=== PATIENT | male | born 1970 | race Caucasian/White ===

== ENCOUNTER 2017-01-07 00:59 | Emergency (ER) | payer OTHER ==
[~2017-01-07] VITALS: Ht 180.3 cm; Wt 86.4 kg
[~2017-01-07 00:59] MED LIST: HYDR25TA4 PO; OMEP20CA11 PO; POTASSIUM
[2017-01-07 01:01] VITALS: BP 155/104; PULSE 102; RESP 18; O2SAT 98
--- NOTE | 2017-01-07 01:25 | ED.REPORT ---
HPI-Dental/Mouth Prob Date of Service Jan 07, 2017 ED Provider: Jesus Vinson DO Pt is a 46 y.o. male with a hx of HTN who presents to the ED c/o right sided mouth and tooth pain onset 2 weeks ago and gradually worsening. Pt states that he was seen by a dentist last week and was told that his mouth x-ray did not show any cavities. He was prescribed a muscle relaxer by the dentist. He reports increased pain with cold fluids. Pt denies fever, chills, nausea, vomiting, and diarrhea. Nursing Notes Stated Complaint: TOOTH PAIN Chief Complaint: Dental Nursing Notes Reviewed: Yes Allergies: Coded Allergies: Penicillins (Verified Allergy, Intermediate, Rash, 01/07/17) carbamazepine (Verified Allergy, Unknown, rash, 01/07/17) Scheduled Hydrochlorothiazide (Hydrochlorothiazide) 25 Mg Tablet 25 MG PO DAILY Scheduled PRN Omeprazole (Omeprazole) 20 Mg Capsule.dr 20 MG PO BID PRN PRN For Epigastric Distress Miscellaneous Medications ([Potassium]) General Time Seen by MD: 01:24 Chief Complaint Mouth pain, Tooth pain Hx Obtained From: Patient Arrived By: Walk-in Onset Occurred: More than a week ago... (2 weeks) Symptom Duration: Since onset Location: : Gum mandible right: Gum maxillary right: Tooth lower R molar: Tooth upper R molar Quality: Painful Severity: Current: Severe Past Medical History Past Medical History Epididymitis Reports: Hypertension Past Surgical History C6-7 spinal surgry Right ACL repair R ear surgery/some type of skin flap anomaly Smoking History Never Smoker Social History Alcohol Use: Denies alcohol use Drug Use: Denies drug use Other Social History: Good social support, , Local resident Ambulatory Status Independent Review of Systems Constitutional: Denies: Chills, Fever Ears / Nose / Throat: Reports: Mouth pain, Toothache GI: Denies: Diarrhea, Nausea, Vomiting Complete sys rev & neg: except as marked. Physical Exam Initial Vital Signs Vital Signs (First) Date Time Temp Pulse Resp B/P Pulse Ox O2 Delivery O2 Flow Rate FiO2 01/07/17 01:01 36.8 102 18 155/104 98 01/07/17 02:29 Room Air Initial VS: Reviewed Head / Eyes: Atraumatic, Normocephalic Abdomen / GI: No distention Extremities: Vascular intact, Neuro intact Skin: Warm, Dry, No cyanosis Psychiatric: Mood/affect normal, Behavior normal, Normal thought content ENT: Atraumatic, Airway patent Dental / Gums: Positive: Dental caries present, Tender to percussion, Tooth fracture (possible), Negative: Dental abscess Neck: Atraumatic, Supple, No adenopathy General/Constitutional: Awake, Alert, Well appearing, Well developed, Well hydrated, Well nourished, Not toxic appearing Respiratory / Chest: Atraumatic, Breath sounds NL, Breath sounds = bilat, No respiratory distress Cardiovascular: Heart rate NL, Regular rhythm, Heart sounds NL, Peripheral circulation NL Neurologic: Oriented X3, Speech NL, CN II - XII intact Re-Eval/Medical Decision Med Decision/Clinical Course No signs of a periapical abscess. No stridor trismus or drooling. I will place him on a short course of antibiotics. He has a prescription of opiates waiting. He will be sent home with 10 [place] for tonight. I did recommend close outpatient dental follow-up Re-Evaluation/Progress : Time of Eval: 01:38 Re-Evaluation/Progress Note: Physical exam performed. Discussed plan for discharge, pt understands and agrees with plan. Discharge & Departure Primary Impression: Pain, dental Additional Impression: Dental caries Disposition: Home Discharge Condition All VS Reviewed: Yes Condition: Improved Patient Instructions: Dental Abscess (ED) Additional Instructions: You were seen here today for dental pain. Take Clindamycin 3 times daily for the next 5 days. Take 1-2 [place] every 6 hours as needed for pain. Do not drink, drive, or consume acetaminophen while taking [place]. Set up a follow-up appointment with your dentist. Return if you experience signs of infection: fever, redness, or drainage, or have any new or worsening symptoms. Referrals: NOPCP (PCP) [facility] [place] [facility] Portions of this note were transcribed by Carley Das. I, Dr. Vinson personally performed the history, physical exam and medical decision-making; I reviewed and confirmed the accuracy of the information in the transcribed note. Signed by : Scarlett Garay, 01/07/17 and 0140. copies to: [facility] Jesus Vinson DO Jan 07, 2017 01:25 CARLEY DAS Jan 07, 2017 01:33
[2017-01-07] MEDS ORDERED: _HYDROcodone/APAP 5-325 mg Tablet PO PRN (01:30)
[2017-01-07 02:29] VITALS: BP 145/90; PULSE 99; RESP 17; O2SAT 97
== END 2017-01-07 02:30 | disposition home or self-care (01) ==
LOC: SED 00:59
DX: K02.9 Dental caries, unspecified (principal); I10 Essential (primary) hypertension; Z88.0 Allergy status to penicillin; Z88.8 Allergy status to other drugs, medicaments and biological substances